=== PATIENT | female | born 1955 | race Caucasian/White ===

== ENCOUNTER 2022-02-11 15:31 | Inpatient (IN) ==
[2022-02-11 19:12] LABS: Bacteria,Urine Few per hpf (None-Few); Bilirubin,Urine Negative (Negative); Blood,Urine Negative (Negative); Clarity,Urine Clear (Clear); Color,Urine Light-Yellow (Yellow); Glucose,Urine (UA) 200 mg/dL (Normal); Ketones,Urine Negative (Negative); Leukocyte Esterase,Urine Moderate (Negative); Mucus,Urine Few per lpf (None-Few); Nitrite,Urine Negative (Negative); PH,Urine 5.5 pH Units (5.0-8.0); Protein,Urine Trace mg/dL (Neg-Trace); RBC,Urine 0-3 per hpf (0-3); Specific Gravity,Urine 1.026 (1.010-1.025); Squamous Epithelial Cell,Urine Few per hpf (None-Few); Urobilinogen,Urine Normal (Normal)
[2022-02-11 19:14] LABS: Basophils # 0.1 K/mcL (0.0-0.2); Basophils % 0.8 %; Eosinophils # 0.2 K/mcL (0.0-0.6); Eosinophils % 2.3 %; Hematocrit 42.8 % (35.3-44.9); Hemoglobin 14.6 g/dL (11.5-15.4); Immature Granulocytes % 0.3 % (0-4); Lymphocytes # 2.4 K/mcL (0.6-4.6); Mean Corpuscular HGB Conc 34.1 g/dL (31.6-35.5); Mean Corpuscular Hemoglobin 30.6 pg (28.0-33.3); Mean Corpuscular Volume 89.7 fL (83.0-100.0); Mean Platelet Volume 11.1 fL (9.4-12.4); Monocytes # 0.5 K/mcL (0.0-1.3); Neutrophils # 4.1 K/mcL (1.6-8.9); Platelet Count 225 K/mcL (140-400); Red Blood Count 4.77 M/mcL (3.82-4.97); Red Cell Distribution Width 12.5 % (11.5-14.5); Segmented Neutrophils % 56.6 %; White Blood Count 7.3 K/mcL (4.3-11.1)
[2022-02-11 19:24] LABS: Amphetamine Screen,Urine Negative ng/mL (Cutoff=1000); Barbiturate Screen,Urine Negative ng/mL (Cutoff=200); Benzodiazepines Screen,Urine Negative ng/mL (Cutoff=200); Cannabinoid Screen,Urine Negative ng/mL (Cutoff = 50); Cocaine Screen,Urine Negative ng/mL (Cutoff= 300); Opiate Screen,Urine Negative ng/mL (Cutoff=300); Phencyclidine Screen,Urine Negative ng/mL (Cutoff=25)
[2022-02-11 19:28] LABS: Estimated Average Glucose 223 mg/dl; Hemoglobin A1C 9.4 %
[2022-02-11 20:07] LABS: Influenza A PCR Negative (Negative); Influenza B PCR Negative (Negative); Resp. Syncytial Virus PCR Negative (Negative)
[2022-02-11 20:09] LABS: Acetaminophen < 10 mcg/mL (10-20); BUN/Creatinine Ratio 36 (6-26); Blood Urea Nitrogen 21 mg/dL (8-23); Calcium 9.8 mg/dL (8.6-10.3); Carbon Dioxide 27 mEq/L (23-29); Chloride 102 mEq/L (98-107); Ethanol < 10 mg/dL (Less than 10); Glucose 222 mg/dL (70-105); Osmolality,Calculated 292 (280-300); Potassium 5.1 mEq/L (3.5-5.1); Salicylate < 2.5 mg/dL (15.0-30.0); Sodium 136 mEq/L (136-145)
[2022-02-11 20:11] LABS: SARS-CoV-2 by PCR (In House) Negative (Negative)
[2022-02-11] MEDS ORDERED: Acetaminophen 325 MG TABLET PO ONE (23:50)
[2022-02-12] MEDS ORDERED: haloperidoL 5 MG TABLET PO PRN (00:13)
[2022-02-12] MEDS ORDERED: hydrOXYzine pamoate 25 MG CAPSULE PO PRN (00:13)
[2022-02-12] MEDS ORDERED: traZODone 50 MG TABLET PO PRN (00:13)
[2022-02-12] MEDS ORDERED: *HR* LORazepam 2 MG/ML VIAL IM PRN (00:13)
[2022-02-12] MEDS ORDERED: Acetaminophen 325 MG TABLET PO PRN (00:13)
[2022-02-12] MEDS ORDERED: Haloperidol Lactate 5 MG/ML VIAL IM PRN (00:13)
[2022-02-12] MEDS ORDERED: *HR* LORazepam 1 MG TABLET PO PRN (00:13)
[2022-02-12] MEDS ORDERED: Insulin DETEMIR 100 UNIT/ML X5UNITS SUBQ STA (00:58)
[2022-02-12] MEDS: Insulin LISPRO 300 UNITS/3 ML VIAL SUBQ SCH ×3 (09:07→16:50)
[2022-02-12] MEDS: Insulin DETEMIR 100 UNIT/ML X5UNITS SUBQ SCH (21:28)
[2022-02-13] MEDS: Insulin LISPRO 300 UNITS/3 ML VIAL SUBQ SCH ×3 (08:27→17:07)
[2022-02-13] MEDS ORDERED: Aspirin 325 MG TABLET PO PRN (09:34)
[2022-02-13] MEDS: Insulin DETEMIR 100 UNIT/ML X5UNITS SUBQ SCH (21:04)
[2022-02-14 07:59] VITALS: BP 139/80; PULSE 70; TEMP 97.2; O2SAT 98
[2022-02-14] MEDS: Insulin LISPRO 300 UNITS/3 ML VIAL SUBQ SCH (08:32)
== END 2022-02-14 11:10 | disposition home or self-care (01) | DRG 885 ==
LOC: EMEROOARM 15:31 → 1ANU 02-12 00:01
PROVIDERS: ADMIT Psychiatry & Neurology Forensic Psychiatry; ATTEND Psychiatry & Neurology Forensic Psychiatry